=== PATIENT | female | born 1965 | race African-American/Black ===

== ENCOUNTER 2017-02-16 13:52 | Inpatient (IN) | payer OTHER ==
[~2017-02-16] VITALS: Ht 157.5 cm; Wt 81.8 kg
[2017-02-16] VITALS (13 sets, daily range): BP systolic 129–200; BP diastolic 80–110
--- NOTE | 2017-02-16 14:03 | RAD ---
CT head Indication: Weakness, confusion, nonverbal. Technique: CT head without IV contrast Comparison: None Findings: No pathologic extra-axial or intra-axial fluid collection. The ventricles and basal cisterns are within normal limits. No acute intracranial bleed. No midline shift. No loss of focal barker-white differentiation. No calvarial lesions. Visualized paranasal sinuses and mastoid air cells are clear. Impression: No acute intracranial process on this noncontrast CT. If concern for acute ischemic stroke is high, please consider MRI brain. PQRS Compliance Statement: One or more of the following individualized dose reduction techniques were utilized for this examination: 1. Automated exposure control 2. Adjustment of the mA and/or kV according to patient size 3. Use of iterative reconstruction technique
[2017-02-16 14:14] LABS: BASO % 1 % (0-3); EOS # 0.1 x10^3/uL (0.0-0.7); EOS % 2 % (0-3); HEMATOCRIT 39.7 % (36.0-47.0); HEMOGLOBIN 13.3 g/dL (12.0-15.5); LYMPH % 58 % (24-48); MEAN CORPUSCULAR HEMOGLOBIN 30 pg (25-35); MEAN CORPUSCULAR HGB CONC 34 g/dL (31-37); MEAN CORPUSCULAR VOLUME 88 fL (79-100); MONO # 0.6 x10^3/uL (0.0-1.1); MONO % 9 % (0-9); NEUT # 2.1 x10^3uL (1.8-7.7); NEUT % 31 % (31-73); PLATELET COUNT 284 x10^3/uL (140-400); RED BLOOD COUNT 4.49 x10^6/uL (3.50-5.40); RED CELL DISTRIBUTION WIDTH 13.1 % (11.5-14.5); WHITE BLOOD COUNT 6.8 x10^3/uL (4.0-11.0)
[2017-02-16] MEDS ORDERED: IOHEXOL 300 MG/ML 75 ML VIAL. IV ONE (14:15)
--- NOTE | 2017-02-16 14:16 | PHYS DOC ---
Adult General Chief Complaint Chief Complaint: ALTERED MENTAL STATUS HPI HPI Patient is a 51 year old female who presents with altered mental status. Patient brought to the emergency department by EMS at 1352 after responding to a call the local restaurant due to change in mental status. Patient was last known seen at baseline mental status at approximately [id number]. The patient reportedly was stung by a wasp while at a local restaurant. The patient began displaying symptoms of decreasing mental status immediately after the sting which prompted family to call the EMS by family. The patient at this time is not providing any history. The patient does open eyes spontaneously and is attempting to follow commands. Past medical history is unknown at this time. Stroke scale was attempted by EMS but they state that they were unable to perform thus this patient was unresponsive. Review of Systems Review of Systems Unable to obtain from patient due to aphasia Allergies Allergies Allergies Coded Allergies Type Severity Reaction Last Updated Verified No Known Drug Allergies 02/16/17 No Physical Exam Physical Exam Constitutional: Lethargic, opens eyes spontaneously, aphasic. [] HENT: Normocephalic, atraumatic, bilateral external ears normal, oropharynx moist, no oral exudates, nose normal. [] Eyes: PERRLA, EOMI, conjunctiva normal, no discharge. [] Neck: Normal range of motion, no tenderness, supple, no stridor. [] Cardiovascular: Tachycardia, regular rhythm, no murmur [] Lungs & Thorax: Bilateral breath sounds clear to auscultation [] Abdomen: Bowel sounds normal, soft, no tenderness, no masses, no pulsatile masses. [] Skin: Warm, dry, no erythema, no rash. [] Back: No tenderness, no CVA tenderness. [] Extremities: No tenderness, no cyanosis, no clubbing, ROM intact, no edema. [] Neurologic: Lethargic, afebrile, 4 out of 5 strength in the bilateral upper extremities, 2 out of 5 combatant diver qualified strength bilaterally, 2 out of 5 proximal muscle group lower extremity strength bilaterally, deep tendon reflexes intact. [] Current Patient Data Vital Signs Vital Signs Date Time Temp Pulse Resp B/P (MAP) Pulse Ox O2 Delivery O2 Flow Rate FiO2 02/16/17 13:55 97.4 110 21 100 Room Air Lab Results Laboratory Tests Test 02/16/17 13:59 02/16/17 14:13 02/16/17 14:17 02/16/17 14:43 White Blood Count 6.8 x10^3/uL Red Blood Count 4.49 x10^6/uL Hemoglobin 13.3 g/dL Hematocrit 39.7 % Mean Corpuscular Volume 88 fL Mean Corpuscular Hemoglobin 30 pg Mean Corpuscular Hemoglobin Concent 34 g/dL Red Cell Distribution Width 13.1 % Platelet Count 284 x10^3/uL Neutrophils (%) (Auto) 31 % Lymphocytes (%) (Auto) 58 % Monocytes (%) (Auto) 9 % Eosinophils (%) (Auto) 2 % Basophils (%) (Auto) 1 % Neutrophils # (Auto) 2.1 x10^3uL Lymphocytes # (Auto) 4.0 x10^3/uL Monocytes # (Auto) 0.6 x10^3/uL Eosinophils # (Auto) 0.1 x10^3/uL Basophils # (Auto) 0.0 x10^3/uL Prothrombin Time 10.3 SEC Prothromb Time International Ratio 1.0 Activated Partial Thromboplast Time 25 SEC Sodium Level 142 mmol/L Potassium Level 3.3 mmol/L Chloride Level 107 mmol/L Carbon Dioxide Level 27 mmol/L Anion Gap 8 14 mmol/L Blood Urea Nitrogen 16 mg/dL Creatinine 0.8 mg/dL Estimated GFR (Cockcroft-Gault) 91.5 Glucose Level 91 mg/dL 84 mg/dL Calcium Level 9.2 mg/dL Magnesium Level 1.9 mg/dL Creatine Kinase 168 U/L Creatine Kinase MB (Mass) 1.3 ng/mL Creatine Kinase MB Relative Index 0.8 % Troponin I Quantitative < 0.017 ng/mL Bedside Hemoglobin 13.3 gm/dL Bedside Hematocrit 39 % Bedside Sodium 142 mmol/L Bedside Potassium 3.1 mmol/L Bedside Chloride 109 mmol/L Bedside Total CO2 24 mmol/L Bedside Blood Urea Nitrogen 15 mg/dL Bedside Creatinine 0.7 mg/dL Bedside Ionized Calcium (Deepa) 1.05 mmol/L Urine Collection Type U cath Urine Color Yellow Urine Clarity Clear Urine pH 5.5 Urine Specific [place] 1.025 Urine Protein Neg Urine Glucose (UA) Neg mg/dL Urine Ketones (Stick) Neg mg/dL Urine Blood Neg Urine Nitrite Neg Urine Bilirubin Neg Urine Urobilinogen Dipstick 0.2 mg/dL Urine Leukocyte Esterase Neg Urine RBC 0 /HPF Urine WBC Occ /HPF Urine Squamous Epithelial Cells Occ /LPF Urine Bacteria 0 /HPF Urine Mucus Mod /LPF Urine Opiates Screen Neg Urine Methadone Screen Neg Urine Barbiturates Neg Urine Phencyclidine Screen Neg Urine Amphetamine/Methamphetamine Neg Urine Benzodiazepines Screen Neg Urine Cocaine Screen Neg Urine Cannabinoids Screen Neg Urine Ethyl Alcohol Neg Bedside Urine HCG, Qualitative hcg negative Current Medications Medications (Trade) Dose Ordered Sig/Christopher Route PRN Reason Start Time Stop Time Status Last Admin Dose Admin Iohexol (Omnipaque 300 Mg/ml) 75 ml 1X ONCE IV 02/16/17 14:15 02/16/17 14:17 DC 02/16/17 14:31 EKG EKG Interpreted by me: Heart rate 110, sinus tachycardia, normal intervals, normal axis, no acute ST/T-wave abnormalities present[] Radiology/Procedures Radiology/Procedures [address] [address] IMAGING REPORT Signed PATIENT: NILS CORTEZ ACCOUNT: [id number] : 1965 LOCATION: ER AGE: 51 SEX: F EXAM STATUS: REG ER ORD. PHYSICIAN: GENI RIVERS MD REASON: altered mental status, aphasia PROCEDURE: CT ANGIOGRAPHY HEAD AND NECK CT angiogram of head and neck Indication: Altered mental status, aphasic. Technique: CT angiogram of the head and neck with 75 mL of Omnipaque 300 with multi planar MIP reformats. Volume rendered process is and was performed. Comparison: CT head from the same day Findings: CTA Neck: Conventional arch anatomy. The bilateral common carotid arteries are patent without evidence of atherosclerotic disease or stenosis. Bilateral external carotid arteries are patent. Bilateral extracranial internal carotid arteries are patent without evidence of atherosclerotic disease or stenosis. Subclavian arteries are patent. Bilateral jugular veins are patent. No bulky cervical adenopathy. The nasopharynx, oropharynx and hypopharynx within normal limits. The submandibular glands, parotid glands are within normal limits. 8 mm low attenuating nodule is seen in the right thyroid lobe. Calcified lymph node in the aortopulmonary recess. No axillary adenopathy. Calcified granuloma in the left lung apex. Otherwise, visualized lungs are within normal limits. No suspicious bony lesions. The visualized paranasal sinuses and mastoid air cells are clear. CTA Head: No enhancing brain lesion. No midline shift. The bilateral CLAUDE are patent without evidence of atherosclerotic disease, stenosis or aneurysm. The bilateral MCA are patent without evidence of atherosclerotic disease, stenosis or aneurysm. Bilateral ophthalmic arteries are patent. Right posterior communicating arteries is not visualized likely hypoplastic. Left posterior communicating artery is normal in caliber. Right posterior cerebral artery is patent. P1 segment of the left posterior cerebral artery is not visualized. P2 and P3 segments of the left posterior cerebral artery is supplied by left posterior communicating artery. Bilateral superior cerebellar arteries are visualized and are patent. Bilateral posterior inferior cerebellar arteries are visualized and are patent. Bilateral anterior inferior cerebellar arteries are not visualized likely hypoplastic. Basilar artery is patent. Bilateral vertebral arteries are patent. Bilateral cavernous carotid arteries are patent. The petrous segments of the bilateral internal carotid arteries is patent. The dural venous sinuses are patent. The orbits are within normal limits. Impression: No evidence of significant atherosclerotic disease or high-grade stenosis of the head and neck arteries. PQRS Compliance Statement: One or more of the following individualized dose reduction techniques were utilized for this examination: 1. Automated exposure control 2. Adjustment of the mA and/or kV according to patient size 3. Use of iterative reconstruction technique DICTATED AND SIGNED BY: DESIREE MART DO DATE: 02/16/17 1443 CC: GENI RIVERS MD; PCP,NO ~ [address] [address] IMAGING REPORT Signed PATIENT: NILS CORTEZ ACCOUNT: [id number] : 1965 LOCATION: ER AGE: 51 SEX: F EXAM STATUS: REG ER ORD. PHYSICIAN: GENI RIVERS MD REASON: altered mental status, rule out acute cardiopulmonary abnormality PROCEDURE: PORTABLE CHEST 1V Portable chest, 02/16/2017: History: Altered mental status The heart size and pulmonary vascularity are normal. Dense nodules in the left apex and left base are probably granulomas. No acute infiltrate is seen. There is no evidence of pleural fluid. IMPRESSION: No acute cardiopulmonary abnormality is detected. DICTATED AND SIGNED BY: DAVID TREVINO MD DATE: 02/16/17 1502 CC: GENI RIVERS MD; PCP,NO ~ [address] [address] IMAGING REPORT Signed PATIENT: NILS MCGUIRE ACCOUNT: [id number] : 1965 LOCATION: ER AGE: 51 SEX: F EXAM STATUS: PRE ER ORD. PHYSICIAN: GENI RIVERS MD REASON: WEAKNESS, CONFUSION, NON VERBAL PROCEDURE: CT CODE STROKE HEAD WO CT head Indication: Weakness, confusion, nonverbal. Technique: CT head without IV contrast Comparison: None Findings: No pathologic extra-axial or intra-axial fluid collection. The ventricles and basal cisterns are within normal limits. No acute intracranial bleed. No midline shift. No loss of focal barker-white differentiation. No calvarial lesions. Visualized paranasal sinuses and mastoid air cells are clear. Impression: No acute intracranial process on this noncontrast CT. If concern for acute ischemic stroke is high, please consider MRI brain. PQRS Compliance Statement: One or more of the following individualized dose reduction techniques were utilized for this examination: 1. Automated exposure control 2. Adjustment of the mA and/or kV according to patient size 3. Use of iterative reconstruction technique DICTATED AND SIGNED BY: DESIREE MART DO DATE: 02/16/17 1358 CC: GENI RIVERS MD ~ [] Course & Med Decision Making Course & Med Decision Making Pertinent Labs and Imaging studies reviewed. (See chart for details) The patient received emergent head CT which was negative. The patient also received a CT angiogram head and neck which did not show any evidence of acute stenosis or large vessel occlusion. The patient showed improvement in the emergency department in her neurologic status. The patient's blood pressure was noted to be significantly high upon arrival and is returned to 180/100. Patient admitted that she has history of hypertension and admitted that she has not been taking blood pressure medication over the past several days as prescribed. After results of imaging, I spoke with Dr. Lloyd of neurology at 1530. After discussion, he did not recommend administering TPA to the patient. Due to continued generalized weakness, as well as uncontrolled blood pressure, the patient will need admission to the hospital for continued treatment. I spoke with Dr. Sepulveda who accepted care patient in hospital. Dragon Disclaimer Dragon Disclaimer This chart was dictated in whole or in part using Voice Recognition software in a busy, high-work load, and often noisy Emergency Department environment. It may contain unintended and wholly unrecognized errors or omissions. Departure Departure: Impression: Primary Impression: Accelerated hypertension Additional Impressions: Generalized weakness Altered mental status Disposition: 09 ADMITTED INPATIENT Admitting Physician: Juan Antonio Sepulveda Condition: STABLE Problem Qualifiers Additional Impressions: Altered mental status Altered mental status type: transient alteration of awareness Qualified Codes : R40.4 - Transient alteration of awareness GENI RIVERS MD Feb 16, 2017 14:16
[2017-02-16 14:34] LABS: HEMOGLOBIN ISTAT 13.3 gm/dL; POTASSIUM ISTAT 3.1 mmol/L (3.5-5.0)
--- NOTE | 2017-02-16 15:01 | RAD ---
CT angiogram of head and neck Indication: Altered mental status, aphasic. Technique: CT angiogram of the head and neck with 75 mL of Omnipaque 300 with multi planar MIP reformats. Volume rendered process is and was performed. Comparison: CT head from the same day Findings: CTA Neck: Conventional arch anatomy. The bilateral common carotid arteries are patent without evidence of atherosclerotic disease or stenosis. Bilateral external carotid arteries are patent. Bilateral extracranial internal carotid arteries are patent without evidence of atherosclerotic disease or stenosis. Subclavian arteries are patent. Bilateral jugular veins are patent. No bulky cervical adenopathy. The nasopharynx, oropharynx and hypopharynx within normal limits. The submandibular glands, parotid glands are within normal limits. 8 mm low attenuating nodule is seen in the right thyroid lobe. Calcified lymph node in the aortopulmonary recess. No axillary adenopathy. Calcified granuloma in the left lung apex. Otherwise, visualized lungs are within normal limits. No suspicious bony lesions. The visualized paranasal sinuses and mastoid air cells are clear. CTA Head: No enhancing brain lesion. No midline shift. The bilateral CLAUDE are patent without evidence of atherosclerotic disease, stenosis or aneurysm. The bilateral MCA are patent without evidence of atherosclerotic disease, stenosis or aneurysm. Bilateral ophthalmic arteries are patent. Right posterior communicating arteries is not visualized likely hypoplastic. Left posterior communicating artery is normal in caliber. Right posterior cerebral artery is patent. P1 segment of the left posterior cerebral artery is not visualized. P2 and P3 segments of the left posterior cerebral artery is supplied by left posterior communicating artery. Bilateral superior cerebellar arteries are visualized and are patent. Bilateral posterior inferior cerebellar arteries are visualized and are patent. Bilateral anterior inferior cerebellar arteries are not visualized likely hypoplastic. Basilar artery is patent. Bilateral vertebral arteries are patent. Bilateral cavernous carotid arteries are patent. The petrous segments of the bilateral internal carotid arteries is patent. The dural venous sinuses are patent. The orbits are within normal limits. Impression: No evidence of significant atherosclerotic disease or high-grade stenosis of the head and neck arteries. PQRS Compliance Statement: One or more of the following individualized dose reduction techniques were utilized for this examination: 1. Automated exposure control 2. Adjustment of the mA and/or kV according to patient size 3. Use of iterative reconstruction technique
--- NOTE | 2017-02-16 15:06 | RAD ---
Portable chest, 02/16/2017: History: Altered mental status The heart size and pulmonary vascularity are normal. Dense nodules in the left apex and left base are probably granulomas. No acute infiltrate is seen. There is no evidence of pleural fluid. IMPRESSION: No acute cardiopulmonary abnormality is detected.
[2017-02-16 15:07] LABS: AMPHETAMINE/METHAMPHETAMINE NEG (NEG); BARBITURATES NEG (NEG); BENZODIAZEPINES NEG (NEG); CANNABINOIDS NEG (NEG); COCAINE NEG (NEG); METHADONE NEG (NEG); OPIATES NEG (NEG); PHENCYCLIDINE NEG (NEG)
[2017-02-16 15:10] LABS: CALCIUM 9.2 mg/dL (8.5-10.1); CREATININE 0.8 mg/dL (0.6-1.0); GFR 91.5; MAGNESIUM 1.9 mg/dL (1.8-2.4); POTASSIUM 3.3 mmol/L (3.5-5.1)
[2017-02-16 15:17] LABS: BILIRUBIN,URINE NEG (NEG); CLARITY,URINE CLEAR; COLOR,URINE YELLOW; GLUCOSE,URINE NEG (NEG); NITRITE,URINE NEG (NEG); UROBILINOGEN,URINE 0.2 mg/dL (0.2 mg/dL)
[2017-02-16 15:18] LABS: BACTERIA,URINE 0 /HPF (0-FEW); RBC,URINE 0 /HPF (0-2); SQUAMOUS EPITHELIAL CELL,UR OCC /LPF; WBC,URINE OCC /HPF (0-4)
[2017-02-16] MEDS ORDERED: LABETALOL 20 MG/4 ML DISP.SYRIN. IVP ONE (16:20)
[2017-02-16] MEDS ORDERED: 0.9 % SODIUM CHLORIDE 10 ML DISP.SYRIN. IV PRN (18:00)
[2017-02-16] MEDS ORDERED: CALCIUM CARBONATE 500 MG TAB.CHEW PO PRN (18:00)
[2017-02-16] MEDS ORDERED: ONDANSETRON PF 4 MG/2 ML VIAL. IV PRN (18:00)
--- NOTE | 2017-02-16 18:15 | PDOC1 ---
History of Present Illness Reason for Visit: Altered Mental Status History of Present Illness Pt was seen in the [facility] ER at 1630 on 02/16/17. She is here with her daughter. Pt states that she was at her job at [employer] in [place] today when she felt something on the back of her neck. She slapped at it, and it turned out to be either a bee or a wasp. Shortly after that, she became weak, had a headache, felt fatigued, having trouble speaking, and felt lightheaded. She states at that point she doesn't remember anything further. Her daughter states that by the time she got to her mother, she was unresponsive. Per ER staff, she remained that way until she arrived. Since then, she has improved significantly according to staff. She is moving all her extremities and speaking normally, if still softly. Pt's daughter states that this has happened to her before, and she was hospitalized at [facility], where she had a "huge workup," and was told she had a "blood pressure emergency." Pt reports that she takes metoprolol 50 mg daily, but has not taken any in 24 hours. That and a baby aspirin are her only medications. She does not see a doctor regularly. She states that she has had a cold recently and has taken several doses of Sudafed in the past 2 days. At the time of this discussion, she states her vision is ok and she is not nauseated. She does not have CP or SOA, but she does have a WATSON (her whole head). Denies numbness or tingling in her extremities. Pt reports the last time her BP was checked it was over 200 systolic. Chief Complaint: ALTERED MENTAL STATUS Allergies: Coded Allergies: No Known Drug Allergies (Unverified , 02/16/17) Past Medical History Cardiac: HTN Pulmonary: No pertinent hx GI: No pertinent hx Endocrine: No pertinent hx Past Surgical History: No pertinent history Family History: Thyroid disfunction (Daughter had Graves disease dx recently) Past Social History Smoke: No Alcohol: none Drugs: None Lives: with Family Review of Systems Review Of Systems Fourteen system , review of systems has been reviewed. See HPI for pertinent positives and negative responses, other pollard all other systems are negative, non pertinent or non contributory Constitutional: Weakness, Malaise, No: Fever, Chills, Sweats Eyes: No: Blurry vision, Double vision, Eye Pain ENT: YES: Nose congestion, No: Ear pain, Nose pain Respiratory: No: Cough, Pleuritic Pain, Shortness of breath Cardiovascular: No: Chest Pain, Palpitations, Edema Gastrointestinal: No: Nausea, Vomiting, Abdominal Pain Genitourinary: No: Dysuria, Henaturia Musculoskeletal: YES: Muscular Weakness (legs, arms), No: Gait Disturbance, Muscle Pain SKIN: YES: Warm, Dry, No Rashes Neurological: YES: Dizziness (Lightheaded), Headaches (Global), Weakness, No: Bowel/Bladder ControlChng, Confusion, Memory Loss, Numbness/Tingling, Seizures, Speech Problems, Tremors, Visual Changes Allergies: Coded Allergies: No Known Drug Allergies (Unverified , 02/16/17) Medications Current Medications Iohexol (Omnipaque 300 Mg/ml) 75 ml 1X ONCE IV Last administered on 02/16/17 14:31; Start 02/16/17 at 14:15; Stop 02/16/17 at 14:17; Status DC Labetalol HCl (Normodyne) 20 mg 1X ONCE IVP Last administered on 02/16/17 16: 31; Start 02/16/17 at 16:20; Stop 02/16/17 at 16:21; Status DC Nicardipine HCl 50 mg/Sodium Chloride 270 ml @ 0 mls/hr CONT PRN IV SEE I/O RECORD; Start 02/16/17 at 18:00 Acetaminophen (Tylenol) 1,000 mg PRN Q6HRS PRN PO PAIN / TEMP; Start 02/16/17 at 18:00 Sodium Chloride (Normal Saline Flush) 3 ml QSHIFT PRN IV AFTER MEDS AND BLOOD DRAWS; Start 02/16/17 at 18:00; Status UNV Ondansetron HCl (Zofran) 4 mg PRN Q6HRS PRN IV NAUSEA/VOMITING; Start 02/16/17 at 18:00; Status UNV Calcium Carbonate/ Glycine (Tums) 500 mg PRN Q3HRS PRN PO HEARTBURN / GAS; Start 02/16/17 at 18:00; Status UNV Famotidine (Pepcid) 20 mg BID PO ; Start 02/16/17 at 21:00; Status UNV Exam Vital Signs Vital Signs Date Time Temp Pulse Resp B/P (MAP) Pulse Ox O2 Delivery O2 Flow Rate FiO2 02/16/17 17:38 98.0 97 20 187/110 (135) 98 Room Air General Appearance: Alert, Oriented X3, Cooperative, No acute distress, Other ( Tired appearing) HEENT: Atraumatic, PERRLA, EOMI, Mucous membr. moist/pink, Other (Neck supple, full ROM, no JVD, no thyromegaly, no LAD) Respiratory: Clear to auscultation, Normal air movement Heart: Regular rate, Normal S1, Normal S2, No murmurs Cardiac: HTN Abdominal: Normal bowel sounds, Soft, No tenderness, No hepatospenomegaly, No masses Extremities: No clubbing, No edema, Normal pulses, No tenderness/swelling Skin: No rashes, No breakdown Neuro: Normal speech, Normal tone, Sensation intact, Cranial nerves 3-12 NL, Reflexes 2+, Other (Strength 4/5 in all 4 extremities, though difficult to assess because strength seems to come and go depending on what pt is being asked to do. No unilateral focal abnormalities.) Psych/Mental Status: Mental status NL, Mood NL Assessment/Plan Assessment/Plan 1. Hypertensive encephalopathy: Pt's weakness is global and not consistent with an ischemic stroke. Pt's NIH stroke scale, performed at bedside, is ZERO. I reviewed pt's records at [facility]. She was in the ER on 11/04 with various complaints including WATSON, nausea, congestion, and lightheadedness. BP was 197/ 116. She was given a one-time dose of BP med and some pain medicine, felt better, and went home. She was also admitted in 2014 for same issue, but no echo was done as she was supposed to have as an outpatient. I suspect that the combination of not taking her BP med with taking a lot of Sudafed and having longstanding uncontrolled HTN led to this issue. Goal is to lower BP by 25%, then more gradually after that. I will consult cardiology. Neurology was consulted from the ER and will see her as well. She will need to establish with a PCP and get echo as outpatient. There is no sign of HF on today's exam. Treat WATSON w/ Tylenol. Try to avoid sedating meds due to need to keep doing neuro checks. Check TSH and magnesium. 2. Hypokalemia: Give 40 meq PO x 1 now, repeat BMp in AM. 3. DVT proph: SCD's. No heparin due to risk for bleeding. 4. DIsp: Expect stay of 2 midnights due to severity of pt's illness and risk of treating as outpatient. ICU status, pt is full code. COURSE Allergies Coded Allergies Type Severity Reaction Last Updated Verified No Known Drug Allergies 02/16/17 No Laboratory Tests Test 02/16/17 13:59 02/16/17 14:13 02/16/17 14:17 02/16/17 14:43 White Blood Count 6.8 x10^3/uL (4.0-11.0) Red Blood Count 4.49 x10^6/uL (3.50-5.40) Hemoglobin 13.3 g/dL (12.0-15.5) Hematocrit 39.7 % (36.0-47.0) Mean Corpuscular Volume 88 fL (79-100) Mean Corpuscular Hemoglobin 30 pg (25-35) Mean Corpuscular Hemoglobin Concent 34 g/dL (31-37) Red Cell Distribution Width 13.1 % (11.5-14.5) Platelet Count 284 x10^3/uL (140-400) Neutrophils (%) (Auto) 31 % (31-73) Lymphocytes (%) (Auto) 58 % (24-48) Monocytes (%) (Auto) 9 % (0-9) Eosinophils (%) (Auto) 2 % (0-3) Basophils (%) (Auto) 1 % (0-3) Neutrophils # (Auto) 2.1 x10^3uL (1.8-7.7) Lymphocytes # (Auto) 4.0 x10^3/uL (1.0-4.8) Monocytes # (Auto) 0.6 x10^3/uL (0.0-1.1) Eosinophils # (Auto) 0.1 x10^3/uL (0.0-0.7) Basophils # (Auto) 0.0 x10^3/uL (0.0-0.2) Prothrombin Time 10.3 SEC (9.4-11.4) Prothromb Time International Ratio 1.0 (0.9-1.1) Activated Partial Thromboplast Time 25 SEC (23-33) Sodium Level 142 mmol/L (136-145) Potassium Level 3.3 mmol/L (3.5-5.1) Chloride Level 107 mmol/L (98-107) Carbon Dioxide Level 27 mmol/L (21-32) Anion Gap 8 (6-14) 14 mmol/L (6-14) Blood Urea Nitrogen 16 mg/dL (7-20) Creatinine 0.8 mg/dL (0.6-1.0) Estimated GFR (Cockcroft-Gault) 91.5 Glucose Level 91 mg/dL (70-99) 84 mg/dL (60-99) Calcium Level 9.2 mg/dL (8.5-10.1) Magnesium Level 1.9 mg/dL (1.8-2.4) Creatine Kinase 168 U/L (26-192) Creatine Kinase MB (Mass) 1.3 ng/mL (0.0-3.6) Creatine Kinase MB Relative Index 0.8 % (0-4) Troponin I Quantitative < 0.017 ng/mL (0-0.055) Bedside Hemoglobin 13.3 gm/dL Bedside Hematocrit 39 % Bedside Sodium 142 mmol/L (135-145) Bedside Potassium 3.1 mmol/L (3.5-5.0) Bedside Chloride 109 mmol/L (98-110) Bedside Total CO2 24 mmol/L (23-32) Bedside Blood Urea Nitrogen 15 mg/dL (8-26) Bedside Creatinine 0.7 mg/dL (0.5-1.4) Bedside Ionized Calcium (Deepa) 1.05 mmol/L (1.13-1.32) Urine Collection Type U cath Urine Color Yellow Urine Clarity Clear Urine pH 5.5 Urine Specific [place] 1.025 Urine Protein Neg (NEG-TRACE) Urine Glucose (UA) Neg mg/dL (NEG) Urine Ketones (Stick) Neg mg/dL (NEG) Urine Blood Neg (NEG) Urine Nitrite Neg (NEG) Urine Bilirubin Neg (NEG) Urine Urobilinogen Dipstick 0.2 mg/dL (0.2 mg/dL) Urine Leukocyte Esterase Neg (NEG) Urine RBC 0 /HPF (0-2) Urine WBC Occ /HPF (0-4) Urine Squamous Epithelial Cells Occ /LPF Urine Bacteria 0 /HPF (0-FEW) Urine Mucus Mod /LPF Urine Opiates Screen Neg (NEG) Urine Methadone Screen Neg (NEG) Urine Barbiturates Neg (NEG) Urine Phencyclidine Screen Neg (NEG) Urine Amphetamine/Methamphetamine Neg (NEG) Urine Benzodiazepines Screen Neg (NEG) Urine Cocaine Screen Neg (NEG) Urine Cannabinoids Screen Neg (NEG) Urine Ethyl Alcohol Neg (NEG) Bedside Urine HCG, Qualitative hcg negative (Negative) Current Medications Medications (Trade) Dose Ordered Sig/Christopher Route PRN Reason Start Time Stop Time Status Last Admin Dose Admin Iohexol (Omnipaque 300 Mg/ml) 75 ml 1X ONCE IV 02/16/17 14:15 02/16/17 14:17 DC 02/16/17 14:31 Labetalol HCl (Normodyne) 20 mg 1X ONCE IVP 02/16/17 16:20 02/16/17 16:21 DC 02/16/17 16:31 Nicardipine HCl 50 mg/Sodium Chloride 270 ml @ 0 mls/hr CONT PRN IV SEE I/O RECORD 02/16/17 18:00 Acetaminophen (Tylenol) 1,000 mg PRN Q6HRS PRN PO PAIN / TEMP 02/16/17 18:00 Sodium Chloride (Normal Saline Flush) 3 ml QSHIFT PRN IV AFTER MEDS AND BLOOD DRAWS 02/16/17 18:00 UNV Ondansetron HCl (Zofran) 4 mg PRN Q6HRS PRN IV NAUSEA/VOMITING 02/16/17 18:00 UNV Calcium Carbonate/ Glycine (Tums) 500 mg PRN Q3HRS PRN PO HEARTBURN / GAS 02/16/17 18:00 UNV Famotidine (Pepcid) 20 mg BID PO 02/16/17 21:00 UNV Vital Signs Date Time Temp Pulse Resp B/P (MAP) Pulse Ox O2 Delivery O2 Flow Rate FiO2 02/16/17 17:38 98.0 97 20 187/110 (135) 98 Room Air EKG: NSR, no acute ischemia. CT head: No acute abnormalities CT ANGIO of head: No acute abnormaliteis. CXR: No acute abnormalities. BRIGITTE QUEEN MD Feb 16, 2017 18:15
[2017-02-16] MEDS ORDERED: KETOROLAC 30 MG/ML VIAL. IV ONE (18:30)
[2017-02-16] MEDS ORDERED: POTASSIUM CHLORIDE 20 MEQ/15 ML ORAL LIQUID. PO ONE (18:30)
--- NOTE | 2017-02-16 19:10 | EKG ---
[address] [address] Test Date: 2017-02-16 Test Time: 14:03:57 Pat Name: NILS CORTEZ Department: Room: ICU03 1 Gender: F Process Development Chemist: ONI : 1965 Requested By: GENI RIVERS Order Number: [id number] Reading MD: Bam Pascual Measurements Intervals [place] Rate: 110 P: 51 IL: 114 QRS: 16 QRSD: 82 T: 30 QT: 330 QTc: 452 Interpretive Statements SINUS TACHYCARDIA Electronically Signed On 02-17-2017 15:07:26 CDT by Bam Pascual
[2017-02-16] MEDS: ACETAMINOPHEN 500 MG TABLET PO PRN (20:44)
[2017-02-16] MEDS: FAMOTIDINE 20 MG TABLET PO SCH (20:44)
[2017-02-16] MEDS: ZOLPIDEM 5 MG TABLET. PO PRN (21:59)
[2017-02-17] VITALS (17 sets, daily range): BP systolic 109–195; BP diastolic 73–109
[2017-02-17 06:24] LABS: ALBUMIN 3.5 g/dL (3.4-5.0); ALBUMIN/GLOBULIN RATIO 0.9 (1.0-1.7); CREATININE 0.8 mg/dL (0.6-1.0); GFR 91.5; MAGNESIUM 1.9 mg/dL (1.8-2.4); POTASSIUM 3.9 mmol/L (3.5-5.1); TOTAL BILIRUBIN 0.2 mg/dL (0.2-1.0); TOTAL PROTEIN 7.4 g/dL (6.4-8.2)
--- NOTE | 2017-02-17 07:45 | PDOC2 ---
RAUL CASTANEDA GOLD LEAF ROLLER 02/17/17 0745: CONSULT Date of Admission DATE: 02/17/17 TIME: 07:42 Problem List Problems Medical Problems: (1) Accelerated hypertension Status: Acute (2) Altered mental status Status: Acute (3) Generalized weakness Status: Acute Past Medical History Cardiac: HTN Pulmonary: No pertinent hx GI: No pertinent hx Endocrine: No pertinent hx Past Surgical History: No pertinent history Family History: Thyroid disfunction (Daughter had Graves disease dx recently) Past Surgical History Social History Smoke: No Alcohol: none Drugs: None Lives: with Family Current Medications Current Medications Iohexol (Omnipaque 300 Mg/ml) 75 ml 1X ONCE IV Last administered on 02/16/17 14:31; Start 02/16/17 at 14:15; Stop 02/16/17 at 14:17; Status DC Labetalol HCl (Normodyne) 20 mg 1X ONCE IVP Last administered on 02/16/17 16: 31; Start 02/16/17 at 16:20; Stop 02/16/17 at 16:21; Status DC Nicardipine HCl 50 mg/Sodium Chloride 270 ml @ 0 mls/hr CONT PRN IV SEE I/O RECORD Last administered on 02/16/17 18:30; Start 02/16/17 at 18:00 Acetaminophen (Tylenol) 1,000 mg PRN Q6HRS PRN PO PAIN / TEMP Last administered on 02/16/17 20:44; Start 02/16/17 at 18:00 Sodium Chloride (Normal Saline Flush) 3 ml QSHIFT PRN IV AFTER MEDS AND BLOOD DRAWS; Start 02/16/17 at 18:00 Ondansetron HCl (Zofran) 4 mg PRN Q6HRS PRN IV NAUSEA/VOMITING; Start 02/16/17 at 18:00 Calcium Carbonate/ Glycine (Tums) 500 mg PRN Q3HRS PRN PO HEARTBURN / GAS; Start 02/16/17 at 18:00 Famotidine (Pepcid) 20 mg BID PO Last administered on 02/16/17 20:44; Start 02/16/17 at 21:00 Potassium Chloride (KCl Oral Soln) 40 meq 1X ONCE PO Last administered on 02/16 18:28; Start 02/16/17 at 18:30; Stop 02/16/17 at 18:31; Status DC Ketorolac Tromethamine (Toradol) 30 mg 1X ONCE IV Last administered on 18:28; Start 02/16/17 at 18:30; Stop 02/16/17 at 18:31; Status DC Acetaminophen/ Hydrocodone Bitart (Lortab 5/325) 1 tab PRN Q6HRS PRN PO PAIN; Start 02/16/17 at 18:15 Influenza Virus Vaccine Quadrival (Fluarix Quad Syringe) 0.5 ml ONCE ONCE VAX IM ; Start 02/17/17 at 21:00; Stop 02/17/17 at 21:01; Status Cancel Influenza Virus Vaccine Quadrival (Fluarix Quad Syringe) 0.5 ml ONCE ONCE VAX IM ; Start 02/17/17 at 09:00; Stop 02/17/17 at 09:01 Zolpidem Tartrate (Ambien) 5 mg PRN QHS PRN PO INSOMNIA Last administered on 21:59; Start 02/16/17 at 21:45 Allergies: Coded Allergies: No Known Drug Allergies (Unverified , 02/16/17) VITALS Vital Signs Date Time Temp Pulse Resp B/P (MAP) Pulse Ox O2 Delivery O2 Flow Rate FiO2 02/17/17 06:45 86 14 150/103 (119) 100 Room Air 02/17/17 05:08 97.3 Labs Laboratory Tests Test 02/16/17 13:59 02/16/17 14:13 02/16/17 14:17 02/16/17 14:43 White Blood Count 6.8 x10^3/uL (4.0-11.0) Red Blood Count 4.49 x10^6/uL (3.50-5.40) Hemoglobin 13.3 g/dL (12.0-15.5) Hematocrit 39.7 % (36.0-47.0) Mean Corpuscular Volume 88 fL (79-100) Mean Corpuscular Hemoglobin 30 pg (25-35) Mean Corpuscular Hemoglobin Concent 34 g/dL (31-37) Red Cell Distribution Width 13.1 % (11.5-14.5) Platelet Count 284 x10^3/uL (140-400) Neutrophils (%) (Auto) 31 % (31-73) Lymphocytes (%) (Auto) 58 % (24-48) Monocytes (%) (Auto) 9 % (0-9) Eosinophils (%) (Auto) 2 % (0-3) Basophils (%) (Auto) 1 % (0-3) Neutrophils # (Auto) 2.1 x10^3uL (1.8-7.7) Lymphocytes # (Auto) 4.0 x10^3/uL (1.0-4.8) Monocytes # (Auto) 0.6 x10^3/uL (0.0-1.1) Eosinophils # (Auto) 0.1 x10^3/uL (0.0-0.7) Basophils # (Auto) 0.0 x10^3/uL (0.0-0.2) Prothrombin Time 10.3 SEC (9.4-11.4) Prothromb Time International Ratio 1.0 (0.9-1.1) Activated Partial Thromboplast Time 25 SEC (23-33) Sodium Level 142 mmol/L (136-145) Potassium Level 3.3 mmol/L (3.5-5.1) Chloride Level 107 mmol/L (98-107) Carbon Dioxide Level 27 mmol/L (21-32) Anion Gap 8 (6-14) 14 mmol/L (6-14) Blood Urea Nitrogen 16 mg/dL (7-20) Creatinine 0.8 mg/dL (0.6-1.0) Estimated GFR (Cockcroft-Gault) 91.5 Glucose Level 91 mg/dL (70-99) 84 mg/dL (60-99) Calcium Level 9.2 mg/dL (8.5-10.1) Magnesium Level 1.9 mg/dL (1.8-2.4) Creatine Kinase 168 U/L (26-192) Creatine Kinase MB (Mass) 1.3 ng/mL (0.0-3.6) Creatine Kinase MB Relative Index 0.8 % (0-4) Troponin I Quantitative < 0.017 ng/mL (0-0.055) Bedside Hemoglobin 13.3 gm/dL Bedside Hematocrit 39 % Bedside Sodium 142 mmol/L (135-145) Bedside Potassium 3.1 mmol/L (3.5-5.0) Bedside Chloride 109 mmol/L (98-110) Bedside Total CO2 24 mmol/L (23-32) Bedside Blood Urea Nitrogen 15 mg/dL (8-26) Bedside Creatinine 0.7 mg/dL (0.5-1.4) Bedside Ionized Calcium (Deepa) 1.05 mmol/L (1.13-1.32) Urine Collection Type U cath Urine Color Yellow Urine Clarity Clear Urine pH 5.5 Urine Specific [place] 1.025 Urine Protein Neg (NEG-TRACE) Urine Glucose (UA) Neg mg/dL (NEG) Urine Ketones (Stick) Neg mg/dL (NEG) Urine Blood Neg (NEG) Urine Nitrite Neg (NEG) Urine Bilirubin Neg (NEG) Urine Urobilinogen Dipstick 0.2 mg/dL (0.2 mg/dL) Urine Leukocyte Esterase Neg (NEG) Urine RBC 0 /HPF (0-2) Urine WBC Occ /HPF (0-4) Urine Squamous Epithelial Cells Occ /LPF Urine Bacteria 0 /HPF (0-FEW) Urine Mucus Mod /LPF Urine Opiates Screen Neg (NEG) Urine Methadone Screen Neg (NEG) Urine Barbiturates Neg (NEG) Urine Phencyclidine Screen Neg (NEG) Urine Amphetamine/Methamphetamine Neg (NEG) Urine Benzodiazepines Screen Neg (NEG) Urine Cocaine Screen Neg (NEG) Urine Cannabinoids Screen Neg (NEG) Urine Ethyl Alcohol Neg (NEG) Bedside Urine HCG, Qualitative hcg negative (Negative) Test 02/17/17 06:00 Sodium Level 140 mmol/L (136-145) Potassium Level 3.9 mmol/L (3.5-5.1) Chloride Level 106 mmol/L (98-107) Carbon Dioxide Level 25 mmol/L (21-32) Anion Gap 9 (6-14) Blood Urea Nitrogen 13 mg/dL (7-20) Creatinine 0.8 mg/dL (0.6-1.0) Estimated GFR (Cockcroft-Gault) 91.5 BUN/Creatinine Ratio 16 (6-20) Glucose Level 100 mg/dL (70-99) Calcium Level 9.0 mg/dL (8.5-10.1) Magnesium Level 1.9 mg/dL (1.8-2.4) Total Bilirubin 0.2 mg/dL (0.2-1.0) Aspartate Amino Transf (AST/SGOT) 19 U/L (15-37) Alanine Aminotransferase (ALT/SGPT) 21 U/L (14-59) Alkaline Phosphatase 80 U/L (46-116) Total Protein 7.4 g/dL (6.4-8.2) Albumin 3.5 g/dL (3.4-5.0) Albumin/Globulin Ratio 0.9 (1.0-1.7) Images CXR - IMPRESSION: No acute cardiopulmonary abnormality is detected. CT head- Impression: No acute intracranial process on this noncontrast CT. If concern for acute ischemic stroke is high, please consider MRI brain. CTA head/neck- Impression: No evidence of significant atherosclerotic disease or high-grade stenosis of the head and neck arteries. Assessment/Plan 1. accelerated hypertension - off Cardene drip, blood pressure much improved. Suggest ACEI in lieu of beta shannon for bp control and encourage home monitoring. Check echocardiogram. 2. hypertensive encephalopathy - improved. neuro consulted. 3. hypokalemia - resolved Problems: ARBEN NGUYỄN MD 02/17/17 1505: CONSULT History of Present Illness Pt. is a 51 y.o woman who was admitted with uncontrolled HTN. Unfortunately, she does not have insurance. Recently ran out of meds. She has had some light headedness dizzines. No active chest pain now. BP still suboptimal. Cardiovascular: No pertinent hx Allergies: Coded Allergies: No Known Drug Allergies (Unverified , 02/16/17) Assessment/Plan 1. Uncontrolled HTN - -Home on Metoprolol 25mg bid, Lisinopril 10mg daily. Script written. Free clinic resources given to patient. Problems: RAUL CASTANEDA APRN Feb 17, 2017 07:45 ARBEN NGUYỄN MD Feb 17, 2017 15:05
[2017-02-17] MEDS ORDERED: FLU VACC QS2017-18 (36MOS+)/PF 0.5 ML SYRINGE. VAX IM ONE ×2 (09:00→21:00)
[2017-02-17] MEDS: FAMOTIDINE 20 MG TABLET PO SCH ×2 (09:02→20:52)
[2017-02-17] MEDS ORDERED: LISINOPRIL 5 MG TABLET. PO SCH (09:30)
--- NOTE | 2017-02-17 11:35 | PDOC ---
PROGRESS NOTES Diagnosis Problem Assessment 1. Hypertensive encephalopathy: Weakness and neuro sx's resolved. WATSON resolved. BP improved. Not on Cardene drip. Pt advised to stop NSAID's and decongestants, as they likely contributed to her accelerated HTN. Echo ordered per cardiology. Lisinopril started per cardiology. Neuro following. I will continue metoprolol as well, pt's baseline HR around 100-105. Pt plans to f/u with [facility] as outpatient. 2. Hypokalemia: Resolved. K+ 3.9. 3. DVT proph: SCD's. Low risk. 4. Left leg pain: This is chronic. Etiology unclear, DDx includes sciatica, hip OA, bony abnormalities, etc. I will get xray of left hip/femur. Will need f/u w/ PCP as outpatient as well. 5. Paresthesias: C/o tingling in both hands, suspect carpal tunnel. Recommend wear braces nightly and f/u with PCP. 4. DIsp: Pending echo and leg xray. Pt improved, disposition is pending echo result. Problems: Plan of Care: see other orders Subjective Pt is feeling much better today. The weakness, WATSON, and dizziness are gone. She is eating well. States she has been dealing with left leg pain "for a long time," and states it hurts "from the hip all the way down." Denies previous workup. Also c/o tingling in hands. Has not seen a PCP, only goes to ER when ill. Denies chest pain or SOA. Objective Vital Signs Date Time Temp Pulse Resp B/P (MAP) Pulse Ox O2 Delivery O2 Flow Rate FiO2 02/17/17 09:44 95 16 163/91 (115) 100 Room Air 02/17/17 05:08 97.3 Intake and Output 02/18/17 07:00 Intake Total 360 ml Output Total 400 ml Balance -40 ml Intake Oral 360 ml Output Urine Total 400 ml Abdomen: Soft, No tenderness, No masses Heart: Normal S1, Normal S2, No murmurs, Other (Slightly tachy and regular at 107) Extremities: No cyanosis, No edema, Normal pulses General: Alert, Oriented X3, Cooperative, No acute distress HEENT: Atraumatic, PERRLA, EOMI, Mucous membr. moist/pink Lungs: Clear to auscultation, Normal air movement Neck: No JVD, No thyromegaly, No LAD Neuro: Normal speech, Strength at 5/5 X4 ext, Normal tone, Sensation intact, Cranial nerves 3-12 NL, Reflexes 2+ Psych/Mental Status: Mental status NL, Mood NL Skin: No rashes Review of Relevant I have reviewed the following items alysha (where applicable) has been applied. Labs Laboratory Tests Test 02/16/17 13:59 02/16/17 14:13 02/16/17 14:17 02/16/17 14:20 White Blood Count 6.8 x10^3/uL (4.0-11.0) Red Blood Count 4.49 x10^6/uL (3.50-5.40) Hemoglobin 13.3 g/dL (12.0-15.5) Hematocrit 39.7 % (36.0-47.0) Mean Corpuscular Volume 88 fL (79-100) Mean Corpuscular Hemoglobin 30 pg (25-35) Mean Corpuscular Hemoglobin Concent 34 g/dL (31-37) Red Cell Distribution Width 13.1 % (11.5-14.5) Platelet Count 284 x10^3/uL (140-400) Neutrophils (%) (Auto) 31 % (31-73) Lymphocytes (%) (Auto) 58 % (24-48) Monocytes (%) (Auto) 9 % (0-9) Eosinophils (%) (Auto) 2 % (0-3) Basophils (%) (Auto) 1 % (0-3) Neutrophils # (Auto) 2.1 x10^3uL (1.8-7.7) Lymphocytes # (Auto) 4.0 x10^3/uL (1.0-4.8) Monocytes # (Auto) 0.6 x10^3/uL (0.0-1.1) Eosinophils # (Auto) 0.1 x10^3/uL (0.0-0.7) Basophils # (Auto) 0.0 x10^3/uL (0.0-0.2) Prothrombin Time 10.3 SEC (9.4-11.4) Prothromb Time International Ratio 1.0 (0.9-1.1) Activated Partial Thromboplast Time 25 SEC (23-33) Sodium Level 142 mmol/L (136-145) Potassium Level 3.3 mmol/L (3.5-5.1) Chloride Level 107 mmol/L (98-107) Carbon Dioxide Level 27 mmol/L (21-32) Anion Gap 8 (6-14) 14 mmol/L (6-14) Blood Urea Nitrogen 16 mg/dL (7-20) Creatinine 0.8 mg/dL (0.6-1.0) Estimated GFR (Cockcroft-Gault) 91.5 Glucose Level 91 mg/dL (70-99) 84 mg/dL (60-99) Calcium Level 9.2 mg/dL (8.5-10.1) Magnesium Level 1.9 mg/dL (1.8-2.4) Creatine Kinase 168 U/L (26-192) Creatine Kinase MB (Mass) 1.3 ng/mL (0.0-3.6) Creatine Kinase MB Relative Index 0.8 % (0-4) Troponin I Quantitative < 0.017 ng/mL (0-0.055) Bedside Hemoglobin 13.3 gm/dL Bedside Hematocrit 39 % Bedside Sodium 142 mmol/L (135-145) Bedside Potassium 3.1 mmol/L (3.5-5.0) Bedside Chloride 109 mmol/L (98-110) Bedside Total CO2 24 mmol/L (23-32) Bedside Blood Urea Nitrogen 15 mg/dL (8-26) Bedside Creatinine 0.7 mg/dL (0.5-1.4) Bedside Ionized Calcium (Deepa) 1.05 mmol/L (1.13-1.32) Urine Collection Type U cath Urine Color Yellow Urine Clarity Clear Urine pH 5.5 Urine Specific [place] 1.025 Urine Protein Neg (NEG-TRACE) Urine Glucose (UA) Neg mg/dL (NEG) Urine Ketones (Stick) Neg mg/dL (NEG) Urine Blood Neg (NEG) Urine Nitrite Neg (NEG) Urine Bilirubin Neg (NEG) Urine Urobilinogen Dipstick 0.2 mg/dL (0.2 mg/dL) Urine Leukocyte Esterase Neg (NEG) Urine RBC 0 /HPF (0-2) Urine WBC Occ /HPF (0-4) Urine Squamous Epithelial Cells Occ /LPF Urine Bacteria 0 /HPF (0-FEW) Urine Mucus Mod /LPF Urine Opiates Screen Neg (NEG) Urine Methadone Screen Neg (NEG) Urine Barbiturates Neg (NEG) Urine Phencyclidine Screen Neg (NEG) Urine Amphetamine/Methamphetamine Neg (NEG) Urine Benzodiazepines Screen Neg (NEG) Urine Cocaine Screen Neg (NEG) Urine Cannabinoids Screen Neg (NEG) Urine Ethyl Alcohol Neg (NEG) Thyroid Stimulating Hormone (TSH) 1.520 uIU/mL (0.358-3.740) Test 02/16/17 14:43 02/17/17 06:00 Bedside Urine HCG, Qualitative hcg negative (Negative) Sodium Level 140 mmol/L (136-145) Potassium Level 3.9 mmol/L (3.5-5.1) Chloride Level 106 mmol/L (98-107) Carbon Dioxide Level 25 mmol/L (21-32) Anion Gap 9 (6-14) Blood Urea Nitrogen 13 mg/dL (7-20) Creatinine 0.8 mg/dL (0.6-1.0) Estimated GFR (Cockcroft-Gault) 91.5 BUN/Creatinine Ratio 16 (6-20) Glucose Level 100 mg/dL (70-99) Calcium Level 9.0 mg/dL (8.5-10.1) Magnesium Level 1.9 mg/dL (1.8-2.4) Total Bilirubin 0.2 mg/dL (0.2-1.0) Aspartate Amino Transf (AST/SGOT) 19 U/L (15-37) Alanine Aminotransferase (ALT/SGPT) 21 U/L (14-59) Alkaline Phosphatase 80 U/L (46-116) Total Protein 7.4 g/dL (6.4-8.2) Albumin 3.5 g/dL (3.4-5.0) Albumin/Globulin Ratio 0.9 (1.0-1.7) Medications Current Medications Iohexol (Omnipaque 300 Mg/ml) 75 ml 1X ONCE IV Last administered on 02/16/17 14:31; Start 02/16/17 at 14:15; Stop 02/16/17 at 14:17; Status DC Labetalol HCl (Normodyne) 20 mg 1X ONCE IVP Last administered on 02/16/17 16: 31; Start 02/16/17 at 16:20; Stop 02/16/17 at 16:21; Status DC Nicardipine HCl 50 mg/Sodium Chloride 270 ml @ 0 mls/hr CONT PRN IV SEE I/O RECORD Last administered on 02/16/17 18:30; Start 02/16/17 at 18:00 Acetaminophen (Tylenol) 1,000 mg PRN Q6HRS PRN PO PAIN / TEMP Last administered on 02/16/17 20:44; Start 02/16/17 at 18:00 Sodium Chloride (Normal Saline Flush) 3 ml QSHIFT PRN IV AFTER MEDS AND BLOOD DRAWS; Start 02/16/17 at 18:00 Ondansetron HCl (Zofran) 4 mg PRN Q6HRS PRN IV NAUSEA/VOMITING; Start 02/16/17 at 18:00 Calcium Carbonate/ Glycine (Tums) 500 mg PRN Q3HRS PRN PO HEARTBURN / GAS; Start 02/16/17 at 18:00 Famotidine (Pepcid) 20 mg BID PO Last administered on 02/17/17 09:02; Start 02/16/17 at 21:00 Potassium Chloride (KCl Oral Soln) 40 meq 1X ONCE PO Last administered on 02/16 18:28; Start 02/16/17 at 18:30; Stop 02/16/17 at 18:31; Status DC Ketorolac Tromethamine (Toradol) 30 mg 1X ONCE IV Last administered on 18:28; Start 02/16/17 at 18:30; Stop 02/16/17 at 18:31; Status DC Acetaminophen/ Hydrocodone Bitart (Lortab 5/325) 1 tab PRN Q6HRS PRN PO PAIN; Start 02/16/17 at 18:15 Influenza Virus Vaccine Quadrival (Fluarix Quad [id number] Syringe) 0.5 ml ONCE ONCE VAX IM ; Start 02/17/17 at 21:00; Stop 02/17/17 at 21:01; Status Cancel Influenza Virus Vaccine Quadrival (Fluarix Quad Syringe) 0.5 ml ONCE ONCE VAX IM Last administered on 02/17/17 09:05; Start 02/17/17 at 09:00; Stop 02/17/17 at 09:01; Status DC Zolpidem Tartrate (Ambien) 5 mg PRN QHS PRN PO INSOMNIA Last administered on 21:59; Start 02/16/17 at 21:45 Hydralazine HCl (Apresoline) 10 mg PRN Q4HRS PRN IV ELEVATED BP, SEE COMMENTS; Start 02/17/17 at 08:30 Lisinopril (Prinivil) 5 mg DAILY PO Last administered on 02/17/17t 09:36; Start 02/17/17 at 09:30 Vitals/I & O Vital Sign - Last 24 Hours 02/16/17 02/16/17 02/16/17 02/16/17 13:55 16:31 16:51 17:00 Temp 97.4 Pulse 110 99 97 90 Resp 21 20 18 B/P (MAP) 212/108 178/101 (126) Pulse Ox 100 100 99 O2 Delivery Room Air Room Air 02/16/17 02/16/17 02/16/17 02/16/17 17:38 18:26 18:49 18:56 Temp 98.0 Pulse 97 97 110 110 Resp 20 20 22 22 B/P (MAP) 187/110 (135) 200/104 (136) 165/88 (113) 157/89 (111) Pulse Ox 98 95 99 99 O2 Delivery Room Air Room Air Room Air Room Air 02/16/17 02/16/17 02/16/17 02/16/17 19:08 19:14 19:54 20:14 Temp 98.9 Pulse 106 102 102 Resp 20 18 18 B/P (MAP) 149/95 (113) 138/83 (101) 155/95 (115) Pulse Ox 100 99 100 O2 Delivery Room Air Room Air Room Air 02/16/17 02/16/17 02/16/17 02/16/17 20:29 20:53 21:19 22:03 Pulse 104 104 106 106 Resp 18 20 20 20 B/P (MAP) 156/86 (109) 144/91 (108) 157/92 (113) 155/91 (112) Pulse Ox 100 99 100 100 O2 Delivery Room Air Room Air Room Air Room Air 02/16/17 02/16/17 02/17/17 02/17/17 22:57 23:56 00:55 02:01 Pulse 93 92 92 87 Resp 14 14 14 19 B/P (MAP) 147/93 (111) 129/80 (96) 159/91 (113) 131/81 (98) Pulse Ox 98 100 100 92 O2 Delivery Room Air Room Air Room Air Room Air 02/17/17 02/17/17 02/17/17 02/17/17 02:59 03:44 05:01 05:08 Temp 97.3 Pulse 89 87 82 Resp 14 14 12 B/P (MAP) 136/73 (94) 127/80 (96) 109/78 (88) Pulse Ox 100 100 100 O2 Delivery Room Air Room Air Room Air 02/17/17 02/17/17 02/17/17 02/17/17 05:44 06:45 07:45 08:44 Pulse 85 86 88 98 Resp 14 14 16 16 B/P (MAP) 148/88 (108) 150/103 (119) 138/78 (98) 147/92 (110) Pulse Ox 100 100 100 100 O2 Delivery Room Air Room Air Room Air Room Air 02/17/17 02/17/17 09:36 09:44 Pulse 94 95 Resp 16 B/P (MAP) 147/92 163/91 (115) Pulse Ox 100 O2 Delivery Room Air Intake and Output 02/17/17 02/17/17 02/18/17 15:00 23:00 07:00 Intake Total 360 ml Output Total 400 ml Balance -40 ml BRIGITTE QUEEN MD Feb 17, 2017 11:35
[2017-02-17] MEDS: METOPROLOL SUCC 24HR ER 25 MG TAB.ER.24H. PO SCH (12:28)
--- NOTE | 2017-02-17 14:22 | RAD ---
Left femur, 2 views, 02/17/2017: History: Leg pain No fracture or destructive bony lesion is seen. The soft tissues are unremarkable. IMPRESSION: No significant left femoral abnormality is detected. Pelvis with left hip, 3 views, 02/17/2017: No fracture or dislocation is identified. The hip joints are well-maintained with only minimal marginal spurring. There is moderate spurring in the lower lumbar spine. IMPRESSION: No acute bony abnormality is detected.
[2017-02-17] MEDS: hydrALAZINE 20 MG/ML VIAL. IV PRN ×2 (15:18→19:40)
--- NOTE | 2017-02-17 16:32 | CARD ---
APPROVED REPORT EXAM: LIMITED Two-dimensional echocardiogram. Other Information Quality : Average Rhythm : NSR INDICATION Hypertension/HCVD 2D DIMENSIONS Left Atrium(2D)2.6 (1.6-4.0cm)IVSd1.3 (0.7-1.1cm) Aortic Root(2D)2.6 (2.0-3.7cm)LVDd3.5 (3.9-5.9cm) PWd1.3 (0.7-1.1cm)LVDs2.0 (2.5-4.0cm) FS (%) 41.5 %SV37.1 ml LVEF(%)73.5 (>50%) LEFT VENTRICLE The left ventricle is normal size. There is borderline to mild concentric left ventricular hypertroph y. Left ventricle systolic function is normal. The Ejection Fraction is >70%. There is normal LV segm ental wall motion. RIGHT VENTRICLE The right ventricle is normal size. The right ventricular systolic function is normal. ATRIA The left atrium size is normal. The right atrium size is normal. GREAT VESSELS The aortic root is normal in size. PERICARDIAL EFFUSION There is no evidence of significant pericardial effusion. Critical Notification Critical Value: No <Conclusion> Left ventricle systolic function is normal. The Ejection Fraction is >70%. There is normal LV segmental wall motion.
[2017-02-17] MEDS ORDERED: LISINOPRIL 5 MG TABLET. PO ONE (17:30)
[2017-02-17] MEDS: FLUTICASONE 50MCG/NASAL SPRAY 16GM BOTTLE. NS SCH (18:29)
[2017-02-17] MEDS: ACETAMINOPHEN 500 MG TABLET PO PRN (19:38)
[2017-02-17] MEDS: ZOLPIDEM 5 MG TABLET. PO PRN (22:14)
[2017-02-17] MEDS: HYDROcodone/APAP 5/325MG 1 TAB TABLET PO PRN (22:14)
[2017-02-18 02:21] VITALS: BP 146/74
[2017-02-18 05:20] VITALS: BP 159/87
[2017-02-18] MEDS: HYDROcodone/APAP 5/325MG 1 TAB TABLET PO PRN (06:10)
--- NOTE | 2017-02-18 07:32 | CONS ---
DATE OF CONSULTATION: 02/16/2017 TIME: 16 p.m. REASON FOR CONSULTATION: Severe headaches. HISTORY OF PRESENT ILLNESS: This is a 51-year-old -[place] female who was admitted through Emergency Room on account of acute onset of severe headaches according to the patient who works at [employer] in [place]. She was ____. She felt weak with difficulty speaking and lightheadedness. Later on, the patient started having severe headaches and she became unresponsive. On arrival to the Emergency Room, the patient was somewhat unresponsive to verbal commands, but shortly, she started improving and moving her all extremities, then she started talking. Initial nonenhanced head CT scan revealed no acute intracranial process. The patient stated she has been having cold in the last few days and she has been taking Sudafed for the last 2 days. The patient was found to have severe hypertension. She denies nausea, vomiting, photophobia or phonophobia. The patient denies any history of migraine headaches or chronic headaches. She denies chest pain, shortness of breath, palpitation, dysarthria or dysphagia at the time of this evaluation. PAST MEDICAL HISTORY: Significant for hypertension. The patient stated she has been seen in Emergency Room and she was given prescriptions 2 months ago, but she has not been compliant with medication. SOCIAL HISTORY: The patient works at [employer] in [place]. She denies illegal drug use or alcohol drinking. FAMILY HISTORY: Significant for heart disease and diabetes mellitus in her mother. REVIEW OF SYSTEMS: 10-point review of system was performed and consistent with global headaches without nausea, vomiting, photophobia, or phonophobia. She also complains of generalized weakness. ALLERGIES: No known drug allergies. PHYSICAL EXAMINATION: GENERAL: Well-developed, well-nourished -[place] female, not in acute distress. She weighs 181 pounds. VITAL SIGNS: Blood pressure 178/101, respiratory rate is 18, temperature is 98, oxygen saturation 99% on room air, pulse is 90. HEENT: Normocephalic, atraumatic, otherwise, unremarkable. NECK: Supple. Negative for carotid bruit, lymphadenopathy or thyromegaly. LUNGS: Clear to A and P. CARDIOVASCULAR: Regular ____ rhythm, normal S1, S2. There is no S3, S4 or murmur. ABDOMEN: Soft. Bowel sounds positive. EXTREMITIES: Negative for cyanosis, clubbing or pitting edema. NEUROLOGICAL: MENTAL STATUS: The patient is alert and oriented x 3. The speech is fluent. There is no language dysfunction. Memory, judgment, and abstract thinking are normal. The patient denies hallucination or delusion. CRANIAL NERVES: Visual lopez are full. The pupils are reactive to light and accommodation. The extraocular movements are intact. There is no nystagmus. There is no facial motor or sensory deficit. Hearing is intact bilaterally. The palate is elevated symmetrically. Sternocleidomastoid muscles are powerful bilaterally. The patient shrugs her shoulders symmetrically. Protrudes her tongue in the midline without fasciculation or atrophy. MOTOR: No focal muscle bulk was seen. The tone was normal. The strength is 4/5 throughout. Sensory examination revealed normal pinprick, light touch, vibratory and position senses. Deep tendon reflexes were symmetric and active without pathology responses. Gait not tested. LABORATORY DATA: CBC revealed white blood cells of 6.8 thousand, hemoglobin 13.3, hematocrit 39.7, platelet count ____. Chemistry revealed sodium of 142, potassium 3.3, chloride 107, CO2 27, BUN 16, creatinine 0.8 and glucose 91. Cardiac enzymes are normal. Troponin level is less than 0.017. Urinalysis is negative. Urine drug screen is negative. DIAGNOSTIC: Initial nonenhanced head CT scan is negative. CT angio of the neck and head revealed no evidence of significant atherosclerotic disease or stenosis in the neck or head arteries. X-ray of the left hip is negative as well as for left femur bone. IMPRESSION: 1. Brief encephalopathy, probably secondary to severe headaches and recent ____. 2. Severe hypertension. 3. Hypokalemia. 4. ____ RECOMMENDATIONS: 1. Treat the underlying hypertension. 2. Treat the underlying tension headaches and continue with current management initiated by Dr. Sepulveda. M Flaco FERGUSON MD DR: VIJAYA/ion JOB#: [id number] / [id number]
[2017-02-18 09:00] VITALS: BP 196/100
[2017-02-18] MEDS ORDERED: LISINOPRIL 5 MG TABLET. PO SCH (09:00)
[2017-02-18] MEDS ORDERED: IV NORMAL SALINE 50ML 50 ML ONE (09:11)
[2017-02-18] MEDS ORDERED: PROMETHAZINE 12.5 MG in IV NORMAL SALINE 50ML 50 ML IV ONE (09:30)
[2017-02-18] MEDS: FAMOTIDINE 20 MG TABLET PO SCH (10:02)
[2017-02-18] MEDS: METOPROLOL SUCC 24HR ER 25 MG TAB.ER.24H. PO SCH (10:02)
[2017-02-18] MEDS: FLUTICASONE 50MCG/NASAL SPRAY 16GM BOTTLE. NS SCH (10:02)
[2017-02-18 10:52] VITALS: BP 160/106
[2017-02-18 11:48] VITALS: BP 155/90
[2017-02-18] MEDS ORDERED: METO-239 PO (13:27)
[2017-02-18] MEDS ORDERED: LISI10TA2 PO (13:27)
[2017-02-18] MEDS ORDERED: FLUT16SP21 NS (13:27)
--- NOTE | 2017-02-18 13:29 | DISCH ---
DISCHARGE INSTRUCTIONS-DC Condition on Discharge Condition on Discharge: Stable Problems: Activity after Discharge Activity Instructions for Disc: Activity as tolerated Diet after Discharge Diet after Discharge: Low Sodium 2 gm Checks after Discharge Checks after discharge: Check blood press - daily Contacting the DR. after DC Call your doctor for: If your condition worsens Follow-Up Follow up with: PCP within 1 week of discharge BRIGITTE QUEEN MD Feb 18, 2017 13:29
--- NOTE | 2017-02-18 13:34 | PDOC3 ---
Discharge Summary Discharge Summary Date of Admission Date of Admission: Feb 16, 2017 at 15:51 Admitting Diagnosis Hypertensive encephalopathy Accelerated hypertension Chronic allergic sinusitis Chronic left leg pain Date of Discharge: Feb 18, 2017 Discharge Diagnosis Hypertensive encephalopathy, resolved Accelerated hypertension Chronic allergic sinusitis Chronic left leg pain Laboratory Findings Laboratory Tests Test 02/16/17 13:59 02/16/17 14:13 02/16/17 14:17 02/16/17 14:20 White Blood Count 6.8 x10^3/uL (4.0-11.0) Red Blood Count 4.49 x10^6/uL (3.50-5.40) Hemoglobin 13.3 g/dL (12.0-15.5) Hematocrit 39.7 % (36.0-47.0) Mean Corpuscular Volume 88 fL (79-100) Mean Corpuscular Hemoglobin 30 pg (25-35) Mean Corpuscular Hemoglobin Concent 34 g/dL (31-37) Red Cell Distribution Width 13.1 % (11.5-14.5) Platelet Count 284 x10^3/uL (140-400) Neutrophils (%) (Auto) 31 % (31-73) Lymphocytes (%) (Auto) 58 % (24-48) Monocytes (%) (Auto) 9 % (0-9) Eosinophils (%) (Auto) 2 % (0-3) Basophils (%) (Auto) 1 % (0-3) Neutrophils # (Auto) 2.1 x10^3uL (1.8-7.7) Lymphocytes # (Auto) 4.0 x10^3/uL (1.0-4.8) Monocytes # (Auto) 0.6 x10^3/uL (0.0-1.1) Eosinophils # (Auto) 0.1 x10^3/uL (0.0-0.7) Basophils # (Auto) 0.0 x10^3/uL (0.0-0.2) Prothrombin Time 10.3 SEC (9.4-11.4) Prothromb Time International Ratio 1.0 (0.9-1.1) Activated Partial Thromboplast Time 25 SEC (23-33) Sodium Level 142 mmol/L (136-145) Potassium Level 3.3 mmol/L (3.5-5.1) Chloride Level 107 mmol/L (98-107) Carbon Dioxide Level 27 mmol/L (21-32) Anion Gap 8 (6-14) 14 mmol/L (6-14) Blood Urea Nitrogen 16 mg/dL (7-20) Creatinine 0.8 mg/dL (0.6-1.0) Estimated GFR (Cockcroft-Gault) 91.5 Glucose Level 91 mg/dL (70-99) 84 mg/dL (60-99) Calcium Level 9.2 mg/dL (8.5-10.1) Magnesium Level 1.9 mg/dL (1.8-2.4) Creatine Kinase 168 U/L (26-192) Creatine Kinase MB (Mass) 1.3 ng/mL (0.0-3.6) Creatine Kinase MB Relative Index 0.8 % (0-4) Troponin I Quantitative < 0.017 ng/mL (0-0.055) Bedside Hemoglobin 13.3 gm/dL Bedside Hematocrit 39 % Bedside Sodium 142 mmol/L (135-145) Bedside Potassium 3.1 mmol/L (3.5-5.0) Bedside Chloride 109 mmol/L (98-110) Bedside Total CO2 24 mmol/L (23-32) Bedside Blood Urea Nitrogen 15 mg/dL (8-26) Bedside Creatinine 0.7 mg/dL (0.5-1.4) Bedside Ionized Calcium (Deepa) 1.05 mmol/L (1.13-1.32) Urine Collection Type U cath Urine Color Yellow Urine Clarity Clear Urine pH 5.5 Urine Specific [place] 1.025 Urine Protein Neg (NEG-TRACE) Urine Glucose (UA) Neg mg/dL (NEG) Urine Ketones (Stick) Neg mg/dL (NEG) Urine Blood Neg (NEG) Urine Nitrite Neg (NEG) Urine Bilirubin Neg (NEG) Urine Urobilinogen Dipstick 0.2 mg/dL (0.2 mg/dL) Urine Leukocyte Esterase Neg (NEG) Urine RBC 0 /HPF (0-2) Urine WBC Occ /HPF (0-4) Urine Squamous Epithelial Cells Occ /LPF Urine Bacteria 0 /HPF (0-FEW) Urine Mucus Mod /LPF Urine Opiates Screen Neg (NEG) Urine Methadone Screen Neg (NEG) Urine Barbiturates Neg (NEG) Urine Phencyclidine Screen Neg (NEG) Urine Amphetamine/Methamphetamine Neg (NEG) Urine Benzodiazepines Screen Neg (NEG) Urine Cocaine Screen Neg (NEG) Urine Cannabinoids Screen Neg (NEG) Urine Ethyl Alcohol Neg (NEG) Thyroid Stimulating Hormone (TSH) 1.520 uIU/mL (0.358-3.740) Test 02/16/17 14:43 02/17/17 06:00 02/17/17 09:45 Bedside Urine HCG, Qualitative hcg negative (Negative) Sodium Level 140 mmol/L (136-145) Potassium Level 3.9 mmol/L (3.5-5.1) Chloride Level 106 mmol/L (98-107) Carbon Dioxide Level 25 mmol/L (21-32) Anion Gap 9 (6-14) Blood Urea Nitrogen 13 mg/dL (7-20) Creatinine 0.8 mg/dL (0.6-1.0) Estimated GFR (Cockcroft-Gault) 91.5 BUN/Creatinine Ratio 16 (6-20) Glucose Level 100 mg/dL (70-99) Calcium Level 9.0 mg/dL (8.5-10.1) Magnesium Level 1.9 mg/dL (1.8-2.4) Total Bilirubin 0.2 mg/dL (0.2-1.0) Aspartate Amino Transf (AST/SGOT) 19 U/L (15-37) Alanine Aminotransferase (ALT/SGPT) 21 U/L (14-59) Alkaline Phosphatase 80 U/L (46-116) Total Protein 7.4 g/dL (6.4-8.2) Albumin 3.5 g/dL (3.4-5.0) Albumin/Globulin Ratio 0.9 (1.0-1.7) Nasal Screen MRSA (PCR) Negative (Negative) Hospital Course Pt was admitted through the ER after an episode at work where she became disoriented and then essentially unresponsive. Her BP was markedly elevated, in the 210's/100's. She does not see a doctor regularly, but has been in the ER or hospital several times w/ elevated BP. Pt stated after she was admitted that she had been taking Claritin-D "for years," and that she recently had taken several doses of Sudafed additionally due to worsening sinus congestion. She also had not been taking her BP med (Metoprolol). In the hospital she was started on a cardene drip but was quickly transitioned to lisinopril, metoprolol , and PRN hydralazine. SHe was seen by cardiology and an echocardiogram was normal. HER BP at discharge was around 150/90. She does not have insurance and was given information on f/u with [facility]. She may also return to the ER at any time. She c/o chronic left let pain, and xrays of her left pelvis, hip, and femur were negative. She was strongly advised to discontinue all decongestants, and use NSAID's only very sparingly. She v/u. She can use Flonase and OTC Claritin for congestion. Condition at Discharge: Stable Inpatient Meds Current Medications Iohexol (Omnipaque 300 Mg/ml) 75 ml 1X ONCE IV Last administered on 02/16/17 14:31; Start 02/16/17 at 14:15; Stop 02/16/17 at 14:17; Status DC Labetalol HCl (Normodyne) 20 mg 1X ONCE IVP Last administered on 02/16/17 16: 31; Start 02/16/17 at 16:20; Stop 02/16/17 at 16:21; Status DC Nicardipine HCl 50 mg/Sodium Chloride 270 ml @ 0 mls/hr CONT PRN IV SEE I/O RECORD Last administered on 02/16/17 18:30; Start 02/16/17 at 18:00 Acetaminophen (Tylenol) 1,000 mg PRN Q6HRS PRN PO PAIN / TEMP Last administered on 02/17/17 19:38; Start 02/16/17 at 18:00 Sodium Chloride (Normal Saline Flush) 3 ml QSHIFT PRN IV AFTER MEDS AND BLOOD DRAWS; Start 02/16/17 at 18:00 Ondansetron HCl (Zofran) 4 mg PRN Q6HRS PRN IV NAUSEA/VOMITING Last administered on 02/18/17 06:10; Start 02/16/17 at 18:00 Calcium Carbonate/ Glycine (Tums) 500 mg PRN Q3HRS PRN PO HEARTBURN / GAS; Start 02/16/17 at 18:00 Famotidine (Pepcid) 20 mg BID PO Last administered on 02/18/17 10:02; Start 02/16/17 at 21:00 Potassium Chloride (KCl Oral Soln) 40 meq 1X ONCE PO Last administered on 02/16 18:28; Start 02/16/17 at 18:30; Stop 02/16/17 at 18:31; Status DC Ketorolac Tromethamine (Toradol) 30 mg 1X ONCE IV Last administered on 18:28; Start 02/16/17 at 18:30; Stop 02/16/17 at 18:31; Status DC Acetaminophen/ Hydrocodone Bitart (Lortab 5/325) 1 tab PRN Q6HRS PRN PO PAIN Last administered on 02/18/17 06:10; Start 02/16/17 at 18:15 Influenza Virus Vaccine Quadrival (Fluarix Quad Syringe) 0.5 ml ONCE ONCE VAX IM ; Start 02/17/17 at 21:00; Stop 02/17/17 at 21:01; Status Cancel Influenza Virus Vaccine Quadrival (Fluarix Quad Syringe) 0.5 ml ONCE ONCE VAX IM Last administered on 02/17/17 09:05; Start 02/17/17 at 09:00; Stop 02/17/17 at 09:01; Status DC Zolpidem Tartrate (Ambien) 5 mg PRN QHS PRN PO INSOMNIA Last administered on 22:14; Start 02/16/17 at 21:45 Hydralazine HCl (Apresoline) 10 mg PRN Q4HRS PRN IV ELEVATED BP, SEE COMMENTS Last administered on 02/17/17 19:40; Start 02/17/17 at 08:30 Lisinopril (Prinivil) 5 mg DAILY PO Last administered on 02/17/17 09:36; Start 02/17/17 at 09:30; Stop 02/17/17 at 17:31; Status DC Metoprolol Succinate (Toprol Xl) 25 mg DAILY PO Last administered on 02/18/17 10:02; Start 02/17/17 at 11:15 Lisinopril (Prinivil) 10 mg DAILY PO Last administered on 02/18/17 10:03; Start 02/18/17 at 09:00 Lisinopril (Prinivil) 5 mg 1X ONCE PO Last administered on 02/17/17 18:02; Start 02/17/17 at 17:30; Stop 02/17/17 at 17:56; Status DC Fluticasone Propionate (Flonase) 2 spray DAILY NS Last administered on 10:02; Start 02/17/17 at 18:00 Promethazine HCl 12.5 mg/Sodium Chloride 50.5 ml @ 101 mls/hr 1X ONCE IV Last administered on 02/18/17 09:16; Start 02/18/17 at 09:30; Stop 02/18/17 at 09:59; Status DC Sodium Chloride 50 ml @ As Directed STK-MED ONCE .ROUTE Last administered on 09:17; Start 02/18/17 at 09:11; Stop 02/18/17 at 09:12; Status DC Activity: as tolerated Diet: 2 gr sodium Consulting Physician: ARBEN NGUYỄN MD Consulting Speciality: Cardiac Follow-up Plan F/u with PCP within 1 week, will need f/u BMP due to new start of lisinopril. BRIGITTE QUEEN MD Feb 18, 2017 13:34
== END 2017-02-18 15:10 | disposition home or self-care (01) | DRG 78 ==
LOC: ER 13:52 → ICU 15:51
PROVIDERS: ADMIT Family Medicine; ATTEND Family Medicine
DX: I67.4 Hypertensive encephalopathy (principal); R47.01 Aphasia; I10 Essential (primary) hypertension; E87.6 Hypokalemia; J30.9 Allergic rhinitis, unspecified; Z79.899 Other long term (current) drug therapy; Z83.3 Family history of diabetes mellitus; Z91.14 Patient's other noncompliance with medication regimen
CPT/HCPCS: 36415; 51702; 70450; 70496; 70498; 71010; 73502; 73552; 80047; 80048; 80053; 80307; 81001; 81025; 82553; 83735; 84443; 84484; 85025; 85610; 85730; 87641; 90686; 93005; 93308; J0360; J1885; J2405; J2550; J3490; J7050; Q9967; 99285-25; G0479

== ENCOUNTER 2017-08-18 08:10 | Emergency (ER) | payer OTHER ==
[~2017-08-18] VITALS: Ht 157.5 cm; Wt 82.6 kg
[~2017-08-18 08:10] MED LIST: FLUT16SP21 NS; LISI10TA2 PO; METO-239 PO
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
[2017-08-18] MEDS ORDERED: CYCLOBENZAPRINE 10 MG TABLET. PO ONE (08:45)
[2017-08-18] MEDS ORDERED: CYCL-331 PO (08:57)
[2017-08-18 09:03] VITALS: BP 175/123
== END 2017-08-18 09:03 | disposition home or self-care (01) ==
LOC: ER 08:10
DX: M62.830 Muscle spasm of back (principal); I10 Essential (primary) hypertension; V43.62XA Car passenger injured in collision with other type car in traffic accident, initial encounter; Y93.89 Activity, other specified; Y99.8 Other external cause status; Y92.481 Parking lot as the place of occurrence of the external cause
CPT/HCPCS: 99283

== ENCOUNTER 2019-04-06 14:18 | Emergency (ER) | payer SELFPAY ==
[~2019-04-06] VITALS: Ht 157.5 cm; Wt 82.6 kg
[~2019-04-06 14:18] MED LIST changes: +CYCL-331 PO
--- NOTE | 2019-04-06 14:44 | PHYS DOC ---
Past History Past Medical History: Hypertension, Other Past Surgical History: Other Alcohol Use: None Drug Use: Other Adult General Chief Complaint Chief Complaint: FOOT INJURY PAIN HPI HPI is a 53-year-old female who presents with complaint of left foot pain after twisting her foot going down stairs earlier this morning. Patient states that the pain was really bad but she just could not afford to miss a day of work so has worked on the foot all day. She rates her pain to be a 10 out of 10 and states that the pain is worsened with weightbearing. She denies any other injuries. Pain is improved by nothing.[] Review of Systems Review of Systems Constitutional: Denies fever or chills [] Respiratory: Denies cough or shortness of breath [] Cardiovascular: No additional information not addressed in HPI [] Musculoskeletal: Positive left foot pain [] Allergies Allergies Allergies Coded Allergies Type Severity Reaction Last Updated Verified No Known Drug Allergies 02/16/17 No Physical Exam Physical Exam Constitutional: Well developed, well nourished, patient's report and appearance of pain as far out of proportion to physical findings. [] Cardiovascular: Regular rate and rhythm[] Lungs & Thorax: Bilateral breath sounds clear to auscultation [] Skin: Warm, dry, no erythema, no rash. [] Extremities: Examination of left foot demonstrates mild soft tissue swelling with minimal ecchymosis along the dorsal aspect of the midfoot, laterally. Unable to do range of motion testing and only able to lightly brush my skin against patient's foot without patient stating pain is severe. Again report of pain as far out of proportion to physical findings. [] Neurologic: Alert and oriented X 3, no focal deficits noted. [] EKG EKG [] Radiology/Procedures Radiology/Procedures [] Course & Med Decision Making Course & Med Decision Making Pertinent Labs and Imaging studies reviewed. (See chart for details) [] Dragon Disclaimer Dragon Disclaimer This electronic medical record was generated, in whole or in part, using a voice recognition dictation system. Departure Departure: Impression: Primary Impression: Sprain of left foot Disposition: 01 HOME, SELF-CARE Condition: STABLE Referrals: ZAY MENDIOLA MD (PCP) Patient Instructions: Foot Sprain Scripts Tramadol Hcl (TRAMADOL HCL) 50 Mg Tablet 50 MG PO PRN Q6HRS PRN for PAIN, #12 TAB Prov: RENEE CHARLES Jr. DO 04/06/19 Problem Qualifiers Primary Impression: Sprain of left foot Encounter type: initial encounter Qualified Codes: S93.602A - Unspecified sprain of left foot, initial encounter RENEE CHARLES Jr. DO Apr 06, 2019 14:44
[2019-04-06] MEDS ORDERED: traMADol 50 MG TABLET PO ONE (15:00)
[2019-04-06] MEDS ORDERED: TRAM50TA PO (15:27)
[2019-04-06 15:30] VITALS: BP 145/88
--- NOTE | 2019-04-06 16:06 | RAD ---
EXAM: LEFT FOOT 3 VIEWS. HISTORY: Left foot pain after twisting injury. COMPARISON: None. FINDINGS: Three views of the left foot are obtained. No fractures are identified. Alignment is normal. 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 IMPRESSION: 1. No fracture. 1. Mild first metatarsophalangeal osteoarthritis. Electronically signed by: Khanh Echavarria MD (04/06/2019 4:03 PM) [facility]
== END 2019-04-06 16:05 | disposition home or self-care (01) ==
LOC: ER 14:18
DX: S93.602A Unspecified sprain of left foot, initial encounter (principal); I10 Essential (primary) hypertension; X50.1XXA Overexertion from prolonged static or awkward postures, initial encounter; Y93.89 Activity, other specified; Y92.89 Other specified places as the place of occurrence of the external cause; Y99.8 Other external cause status
CPT/HCPCS: 73630; 99284